=== PATIENT | female | born 2000 | race African-American/Black ===

== ENCOUNTER 2022-04-19 17:05 | Emergency (ER) | payer OTHER ==
[~2022-04-19] VITALS: Ht 167.6 cm; Wt 50.0 kg
[2022-04-19] MEDS ORDERED: ONDANSETRON 4MG 2ML VIAL IV ONE (18:45)
[2022-04-19] MEDS ORDERED: NS 1,500 ML in IV 1 EA IV ONE (18:45)
[2022-04-19] MEDS ORDERED: LIDOCAINE VISCOUS 2% SOLN 15ML UDC SS ONE (18:45)
[2022-04-19] MEDS ORDERED: KETOROLAC 30 MG/ML 1ML VIAL IV ONE (18:45)
[2022-04-19 19:29] LABS: BASO % 0.3 % (0.0-1.0); EOS % 0.5 % (0.0-3.0); HEMATOCRIT 25.7 % (36.0-47.0); LYMPH # 0.3 10^3/uL (1.5-5.0); LYMPH % 5.1 % (24.0-44.0); MEAN CORPUSCULAR HEMOGLOBIN 28.9 pg (27.0-33.0); MEAN CORPUSCULAR VOLUME 82.6 fl (80.0-96.0); MONO # 0.6 10^3/uL (0.0-0.8); MONO % 8.7 % (2.0-8.0); NEUTROPHILS # 5.5 10^3/uL (1.5-8.5); NEUTROPHILS % 85.1 % (36.0-66.0); PLATELET COUNT, AUTOMATED 217 10^3/uL (150-450); RED BLOOD COUNT 3.11 10^6/uL (4.00-5.40); WHITE BLOOD COUNT 6.4 10^3/uL (4.0-10.0)
[2022-04-19 19:44] LABS: LIPASE 23 U/L (12-53)
[2022-04-19 19:47] LABS: ALKALINE PHOSPHATASE 84 U/L (46-116); ALT/SGPT 17 U/L (7.0-40); AST/SGOT 15 U/L (<34); BILIRUBIN,DIRECT 0.5 MG/DL (<0.4); BILIRUBIN,TOTAL 1.3 MG/DL (0.3-1.2); BLOOD UREA NITROGEN 6 MG/DL (9-23); CALCIUM LEVEL 8.7 MG/DL (8.5-10.1); CARBON DIOXIDE LEVEL 22 MMOL/L (20-31); CHLORIDE LEVEL 104 MMOL/L (98-107); CREATININE FOR GFR 0.59 MG/DL (0.55-1.30); GLUCOSE, FASTING 93 MG/DL (60-100); POTASSIUM SERUM 3.1 MMOL/L (3.5-5.1); SODIUM LEVEL 140 MMOL/L (136-145)
[2022-04-19] MEDS ORDERED: ACETAMINOPHEN 500 MG TAB PO ONE (20:00)
[2022-04-19] MEDS ORDERED: ACETAMINOPHEN 160MG/5ML SUSP UDC DYE-FREE PO ONE (20:15)
[2022-04-19] MEDS ORDERED: ISOVUE-370 76% 100ML VIAL As Ordered ONE (21:01)
[2022-04-19] MEDS: GASTROGRAFIN SOLUTION 30ML PO SCH ×2 (21:23→21:53)
[2022-04-19] MEDS ORDERED: BENZ200C70 PO (23:48)
[2022-04-19] MEDS ORDERED: LIDO2SOL17 PO (23:48)
[2022-04-19] MEDS ORDERED: ONDA4TAB6 PO (23:48)
[2022-04-19 23:51] VITALS: BP 98/48
[2022-04-19] MEDS ORDERED: IBUPROFEN 100MG 5ML ORAL SUSP UDC PO ONE (23:55)
== END 2022-04-20 00:40 | disposition home or self-care (01) ==
LOC: M ED 18:23
DX: J02.9 Acute pharyngitis, unspecified (principal); R05.9 Cough, unspecified; M79.18 Myalgia, other site; R50.9 Fever, unspecified; D64.9 Anemia, unspecified; Z88.1 Allergy status to other antibiotic agents; Z79.899 Other long term (current) drug therapy
CPT/HCPCS: 71045; 74177; 80048; 80076; 81000; 81015; 83605; 83690; 84702; 85025; 87040; 87428; 96361; 96374; 99284; J2405

== ENCOUNTER 2023-03-01 23:00 | Inpatient (IN) | payer OTHER ==
[~2023-03-01] VITALS: Ht 170.2 cm; Wt 49.1 kg
[~2023-03-01 23:00] MED LIST: BENZ200C70 PO; LIDO15SO PO; ONDA4TAB6 PO
[2023-03-01 23:47] LABS: HEMATOCRIT 27.2 % (36.0-47.0); HEMOGLOBIN 10.2 g/dl (12.0-15.5); MEAN CORPUSCULAR HEMOGLOBIN 30.1 pg (27.0-33.0); MEAN CORPUSCULAR VOLUME 80.2 fl (80.0-96.0); PLATELET COUNT, AUTOMATED 208 10^3/uL (150-450); RED BLOOD COUNT 3.39 10^6/uL (4.00-5.40); WHITE BLOOD COUNT 8.6 10^3/uL (4.0-10.0)
[2023-03-02 00:02] LABS: MEAN CORPUSCULAR HGB CONC 37.5 g/dl (32.0-36.5)
[2023-03-02 00:11] LABS: AMPHETAMINES LEVEL URINE NEGATIVE (NEGATIVE); BARBITURATES URINE NEGATIVE (NEGATIVE); BENZODIAZEPINES URINE NEGATIVE (NEGATIVE); COCAINE METABOLITE URINE NEGATIVE (NEGATIVE)
[2023-03-02 00:12] LABS: METHADONE URINE NEGATIVE (NEGATIVE); OPIATES URINE NEGATIVE (NEGATIVE); PHENCYCLIDINE URINE NEGATIVE (NEGATIVE)
[2023-03-02 00:13] LABS: HCG, SERUM QUALITATIVE NEGATIVE (NEGATIVE)
[2023-03-02 00:14] LABS: ETHYL ALCOHOL (ETHANOL) 0.008 % (0.000-0.010)
[2023-03-02 00:15] LABS: ALBUMIN 4.1 G/DL (3.2-5.2); ALKALINE PHOSPHATASE 78 U/L (46-116); ALT/SGPT 14 U/L (7.0-40); AST/SGOT 18 U/L (<34); BILIRUBIN,DIRECT 0.3 MG/DL (<0.4); BILIRUBIN,TOTAL 0.8 MG/DL (0.3-1.2); BLOOD UREA NITROGEN 11 MG/DL (9-23); CALCIUM LEVEL 9.2 MG/DL (8.5-10.1); CARBON DIOXIDE LEVEL 26 MMOL/L (20-31); CHLORIDE LEVEL 107 MMOL/L (98-107); CREATININE FOR GFR 0.46 MG/DL (0.55-1.30); GLOMERULAR FILTRATION RATE > 60.0 (>60); GLUCOSE, FASTING 102 MG/DL (60-100); POTASSIUM SERUM 3.4 MMOL/L (3.5-5.1); SALICYLATE LEVEL < 3.0 MG/DL (<30); SODIUM LEVEL 140 MMOL/L (136-145); TOTAL PROTEIN 7.3 G/DL (5.7-8.2)
[2023-03-02 00:17] LABS: CANNABINOIDS URINE POSITIVE (NEGATIVE)
[2023-03-02 00:18] LABS: THYROID STIMULATING HORMONE 0.895 uIU/ML (0.55-4.78)
[2023-03-02] MEDS ORDERED: MOM 30ML SUSPENSION UDC PO PRN (16:50)
[2023-03-02] MEDS ORDERED: MAALOX 30 ML SUSP *UDC PO PRN (16:50)
[2023-03-02] MEDS ORDERED: ACETAMINOPHEN TAB 650MG DOSE (2X325MG) PO PRN (16:50)
[2023-03-02] MEDS ORDERED: MED REC IN PROGRESS XX SCH (17:00)
[2023-03-02] MEDS ORDERED: HOME MED LIST COMPLETE! XX SCH (17:45)
[2023-03-03 06:46] VITALS: BP 118/64; TEMP 98.7; O2SAT 100
[2023-03-03] MEDS ORDERED: ESCITALOPRAM OXALATE 10 MG TAB (LEXAPRO) PO SCH (12:00)
[2023-03-03] MEDS ORDERED: SERTRALINE HCL 25 MG TABLET PO ONE (12:20)
[2023-03-03 17:12] VITALS: BP 122/59; TEMP 98.9; O2SAT 100
[2023-03-03] MEDS: IBUPROFEN 400MG TAB PO PRN (17:39)
[2023-03-03] MEDS ORDERED: MIRTAZAPINE 7.5MG PER 1/2 TABLET PO SCH (21:00)
[2023-03-03] MEDS: traZODone 50 MG TAB PO PRN (23:04)
[2023-03-04 06:21] VITALS: BP 107/56; TEMP 99; O2SAT 99
[2023-03-04] MEDS ORDERED: SERTRALINE HCL 50 MG TAB PO SCH (09:00)
[2023-03-04] MEDS: ESCITALOPRAM OXALATE 10 MG TAB (LEXAPRO) PO SCH (09:38)
[2023-03-04] MEDS ORDERED: LIDOCAINE 5% (LIDODERM) PATCH TD PRN (13:25)
[2023-03-04 15:33] VITALS: BP 120/63; TEMP 97.8; O2SAT 99
[2023-03-05] MEDS: traZODone 50 MG TAB PO PRN (00:10)
[2023-03-05 06:47] VITALS: BP 118/72; TEMP 99.5; O2SAT 100
[2023-03-05] MEDS: ESCITALOPRAM OXALATE 10 MG TAB (LEXAPRO) PO SCH (09:49)
[2023-03-05 19:30] VITALS: BP 125/60; TEMP 99.7; O2SAT 100
[2023-03-06] MEDS: diphenhydrAMINE 25MG CAP PO PRN ×2 (02:36→21:14)
[2023-03-06 06:26] VITALS: BP 127/63; TEMP 98.8; O2SAT 100
[2023-03-06] MEDS: ESCITALOPRAM OXALATE 10 MG TAB (LEXAPRO) PO SCH (08:35)
[2023-03-06 18:32] VITALS: BP 128/62; TEMP 98.8; O2SAT 100
[2023-03-06] MEDS: traZODone 50 MG TAB PO PRN (22:36)
[2023-03-07 06:39] VITALS: BP 110/54; TEMP 99.3; O2SAT 100
[2023-03-07] MEDS: ESCITALOPRAM OXALATE 10 MG TAB (LEXAPRO) PO SCH (09:10)
[2023-03-07 16:21] VITALS: BP 111/60; TEMP 98.4; O2SAT 100
[2023-03-07] MEDS: traZODone 50 MG TAB PO PRN (22:51)
[2023-03-08 06:32] VITALS: BP 130/71; TEMP 98.3; O2SAT 99
[2023-03-08] MEDS: ESCITALOPRAM OXALATE 5MG TABLET (LEXAPRO) PO SCH (08:43)
[2023-03-08] MEDS ORDERED: LEXA5TAB13 PO (10:02)
[2023-03-08] MEDS ORDERED: LIDO5TD TD (10:02)
[2023-03-08 16:38] VITALS: BP 127/60; TEMP 98.9; O2SAT 100
[2023-03-08] MEDS: IBUPROFEN 400MG TAB PO PRN (17:07)
[2023-03-08] MEDS: traZODone 50 MG TAB PO PRN (22:55)
[2023-03-09 06:29] VITALS: BP 124/65; TEMP 98.6; O2SAT 99
[2023-03-09] MEDS: ESCITALOPRAM OXALATE 5MG TABLET (LEXAPRO) PO SCH (08:27)
[2023-03-09] MEDS ORDERED: TRAZ-252 PO (12:07)
== END 2023-03-09 13:07 | disposition home or self-care (01) | DRG 751 ==
LOC: M ED 23:00 → M PSY 03-02 17:37
PROVIDERS: ADMIT Student in an Organized Health Care Education/Training Program; ATTEND Student in an Organized Health Care Education/Training Program
DX: F33.1 Major depressive disorder, recurrent, moderate (principal); R45.851 Suicidal ideations; F43.10 Post-traumatic stress disorder, unspecified; F60.3 Borderline personality disorder; F10.10 Alcohol abuse, uncomplicated; F12.10 Cannabis abuse, uncomplicated; Z91.51 Personal history of suicidal behavior; Z62.810 Personal history of physical and sexual abuse in childhood; Z88.0 Allergy status to penicillin; Z88.8 Allergy status to other drugs, medicaments and biological substances; D57.3 Sickle-cell trait; J45.909 Unspecified asthma, uncomplicated

== ENCOUNTER 2023-03-11 17:30 | Inpatient (IN) | payer OTHER ==
[~2023-03-11] VITALS: Ht 167.6 cm; Wt 46.4 kg
[~2023-03-11 17:30] MED LIST changes: +LEXA5TAB13 PO; +LIDO5TD TD; +TRAZ-252 PO
[2023-03-11 18:08] LABS: HCG, SERUM QUALITATIVE NEGATIVE (NEGATIVE)
[2023-03-11 18:16] LABS: ETHYL ALCOHOL (ETHANOL) 0.004 % (0.000-0.010)
[2023-03-11 18:17] LABS: CPK CREATINE PHOSPHOKINASE 107 U/L (34-145)
[2023-03-11 18:18] LABS: ALBUMIN 4.4 G/DL (3.2-5.2); ALKALINE PHOSPHATASE 85 U/L (46-116); ALT/SGPT 20 U/L (7.0-40); AST/SGOT 24 U/L (<34); BILIRUBIN,DIRECT 0.5 MG/DL (<0.4); BILIRUBIN,TOTAL 1.1 MG/DL (0.3-1.2); BLOOD UREA NITROGEN 7 MG/DL (9-23); CALCIUM LEVEL 9.4 MG/DL (8.5-10.1); CARBON DIOXIDE LEVEL 26 MMOL/L (20-31); CHLORIDE LEVEL 108 MMOL/L (98-107); CREATININE FOR GFR 0.47 MG/DL (0.55-1.30); GLOMERULAR FILTRATION RATE > 60.0 (>60); GLUCOSE, FASTING 140 MG/DL (60-100); POTASSIUM SERUM 3.3 MMOL/L (3.5-5.1); SALICYLATE LEVEL < 3.0 MG/DL (<30); SODIUM LEVEL 142 MMOL/L (136-145); TOTAL PROTEIN 7.8 G/DL (5.7-8.2)
[2023-03-11 18:19] LABS: THYROID STIMULATING HORMONE 1.015 uIU/ML (0.55-4.78)
[2023-03-11 18:26] LABS: AMPHETAMINES LEVEL URINE NEGATIVE (NEGATIVE); BARBITURATES URINE NEGATIVE (NEGATIVE); BENZODIAZEPINES URINE NEGATIVE (NEGATIVE); COCAINE METABOLITE URINE NEGATIVE (NEGATIVE); METHADONE URINE NEGATIVE (NEGATIVE); OPIATES URINE NEGATIVE (NEGATIVE); PHENCYCLIDINE URINE NEGATIVE (NEGATIVE)
[2023-03-11 18:29] LABS: CANNABINOIDS URINE POSITIVE (NEGATIVE)
[2023-03-11] MEDS ORDERED: NS 500 ML IV ONE (18:40)
[2023-03-11 18:41] LABS: BASO # 0.1 10^3/uL (0.0-0.2); BASO % 1.2 % (0.0-1.0); EOS # 0.1 10^3/uL (0.0-0.5); EOS % 1.4 % (0.0-3.0); HEMOGLOBIN 10.1 g/dl (12.0-15.5); LYMPH # 2.9 10^3/uL (1.5-5.0); LYMPH % 32.3 % (24.0-44.0); MEAN CORPUSCULAR HEMOGLOBIN 30.3 pg (27.0-33.0); MEAN CORPUSCULAR HGB CONC 37.4 g/dl (32.0-36.5); MEAN CORPUSCULAR VOLUME 81.1 fl (80.0-96.0); MONO # 0.6 10^3/uL (0.0-0.8); MONO % 6.5 % (2.0-8.0); NEUTROPHILS # 5.3 10^3/uL (1.5-8.5); NEUTROPHILS % 58.3 % (36.0-66.0); PLATELET COUNT, AUTOMATED 207 10^3/uL (150-450); RED BLOOD COUNT 3.33 10^6/uL (4.00-5.40); WHITE BLOOD COUNT 9.1 10^3/uL (4.0-10.0)
[2023-03-11] MEDS ORDERED: POTASSIUM CHLORIDE 10MEQ SR TABLET PO ONE (19:20)
[2023-03-11] MEDS: NS 1,000 ML IV SCH (21:14)
[2023-03-11] MEDS ORDERED: LEXA5TAB13 PO (21:50)
[2023-03-11] MEDS ORDERED: LIDO1PAD TOP (21:50)
[2023-03-11] MEDS ORDERED: TRAZ-252 PO (21:50)
[2023-03-11] MEDS ORDERED: HOME MED LIST COMPLETE! XX SCH (21:55)
[2023-03-11] MEDS ORDERED: POTASSIUM CHLORIDE 10% LIQ 20MEQ/15ML UDC PO ONE (22:00)
[2023-03-11 22:53] LABS: RSV AMPLIFICATION NEGATIVE (NEGATIVE)
[2023-03-11 22:58] VITALS: BP 103/51; TEMP 98; O2SAT 99
[2023-03-12 04:00] VITALS: BP 103/58; TEMP 98.4; O2SAT 94
[2023-03-12] MEDS: NS 1,000 ML IV SCH (04:49)
[2023-03-12 06:24] LABS: HEMATOCRIT 23.1 % (36.0-47.0); HEMOGLOBIN 8.4 g/dl (12.0-15.5); MEAN CORPUSCULAR HEMOGLOBIN 29.6 pg (27.0-33.0); MEAN CORPUSCULAR HGB CONC 36.4 g/dl (32.0-36.5); MEAN CORPUSCULAR VOLUME 81.3 fl (80.0-96.0); PLATELET COUNT, AUTOMATED 153 10^3/uL (150-450); RED BLOOD COUNT 2.84 10^6/uL (4.00-5.40); WHITE BLOOD COUNT 8.7 10^3/uL (4.0-10.0)
[2023-03-12 07:12] LABS: ALBUMIN 3.4 G/DL (3.2-5.2); ALKALINE PHOSPHATASE 66 U/L (46-116); ALT/SGPT 14 U/L (7.0-40); AST/SGOT 17 U/L (<34); BILIRUBIN,TOTAL 0.9 MG/DL (0.3-1.2); BLOOD UREA NITROGEN < 5 MG/DL (9-23); CALCIUM LEVEL 8.1 MG/DL (8.5-10.1); CARBON DIOXIDE LEVEL 25 MMOL/L (20-31); CHLORIDE LEVEL 111 MMOL/L (98-107); CREATININE FOR GFR 0.45 MG/DL (0.55-1.30); GLOMERULAR FILTRATION RATE > 60.0 (>60); GLUCOSE, FASTING 94 MG/DL (60-100); POTASSIUM SERUM 4.1 MMOL/L (3.5-5.1); SODIUM LEVEL 143 MMOL/L (136-145); TOTAL PROTEIN 6.1 G/DL (5.7-8.2)
[2023-03-12 07:28] VITALS: BP 100/52; TEMP 98.7; O2SAT 100
[2023-03-12] MEDS: ENOXAPARIN 40MG/0.4ML SYRINGE (J1650 PER 10MG) SC SCH (08:49)
[2023-03-12 11:56] VITALS: BP 100/48; TEMP 99.2; O2SAT 100
[2023-03-12 16:41] VITALS: BP 107/55; TEMP 98.4; O2SAT 98
[2023-03-12 20:00] VITALS: BP 112/56; TEMP 97.9; O2SAT 96
[2023-03-12 23:34] VITALS: BP 104/63; TEMP 98.1; O2SAT 100
[2023-03-13] MEDS: LIDOCAINE 5% (LIDODERM) PATCH TD SCH ×2 (00:51→21:00)
[2023-03-13 05:15] VITALS: BP 101/59; TEMP 97.9; O2SAT 99
[2023-03-13 05:33] LABS: HEMATOCRIT 25.7 % (36.0-47.0); HEMOGLOBIN 9.3 g/dl (12.0-15.5); MEAN CORPUSCULAR HEMOGLOBIN 29.5 pg (27.0-33.0); MEAN CORPUSCULAR HGB CONC 36.2 g/dl (32.0-36.5); MEAN CORPUSCULAR VOLUME 81.6 fl (80.0-96.0); PLATELET COUNT, AUTOMATED 166 10^3/uL (150-450); RED BLOOD COUNT 3.15 10^6/uL (4.00-5.40); WHITE BLOOD COUNT 9.9 10^3/uL (4.0-10.0)
[2023-03-13] MEDS ORDERED: traZODone 50 MG TAB PO PRN (06:55)
[2023-03-13] MEDS: ESCITALOPRAM OXALATE 5MG TABLET (LEXAPRO) PO SCH (08:32)
[2023-03-13] MEDS: ENOXAPARIN 40MG/0.4ML SYRINGE (J1650 PER 10MG) SC SCH (08:32)
[2023-03-13] MEDS ORDERED: LIDOCAINE 5% (LIDODERM) PATCH TD SCH (09:00)
[2023-03-13 10:56] LABS: PERCENT SATURATION 19.2 % (13.2-45.0)
[2023-03-13 10:59] LABS: FERRITIN 24.5 NG/ML (7.3-270.7)
[2023-03-13 14:00] VITALS: BP 104/61; TEMP 97.9; O2SAT 100
[2023-03-13 21:20] VITALS: BP 101/59; TEMP 97.9; O2SAT 99
[2023-03-14 06:00] VITALS: BP 106/60; TEMP 97.7; O2SAT 94
[2023-03-14] MEDS: ESCITALOPRAM OXALATE 5MG TABLET (LEXAPRO) PO SCH (08:36)
[2023-03-14] MEDS: ENOXAPARIN 40MG/0.4ML SYRINGE (J1650 PER 10MG) SC SCH (08:36)
[2023-03-14] MEDS ORDERED: LIDOCAINE 5% (LIDODERM) PATCH TD SCH (13:30)
[2023-03-14 14:00] VITALS: BP 109/67; TEMP 98.1; O2SAT 99
[2023-03-14 18:06] VITALS: BP 110/67; TEMP 97.9; O2SAT 100
== END 2023-03-14 18:30 | disposition home or self-care (01) | DRG 812 ==
LOC: M ED 17:30 → M ED INP 21:45 → ENRESERV 22:20 → M PCU 22:52 → M MSPAV 03-12 23:40
PROVIDERS: ADMIT Family Medicine; ATTEND Student in an Organized Health Care Education/Training Program
DX: T43.212A Poisoning by selective serotonin and norepinephrine reuptake inhibitors, intentional self-harm, initial encounter (principal); F32.1 Major depressive disorder, single episode, moderate; D57.1 Sickle-cell disease without crisis; T14.91XA Suicide attempt, initial encounter; J45.909 Unspecified asthma, uncomplicated; F10.10 Alcohol abuse, uncomplicated; F12.90 Cannabis use, unspecified, uncomplicated; E87.6 Hypokalemia; F43.10 Post-traumatic stress disorder, unspecified; Z83.3 Family history of diabetes mellitus; Z81.8 Family history of other mental and behavioral disorders; Z79.899 Other long term (current) drug therapy; Z88.0 Allergy status to penicillin; Z88.8 Allergy status to other drugs, medicaments and biological substances; Z20.822 Contact with and (suspected) exposure to COVID-19

== ENCOUNTER 2023-03-14 11:55 | Inpatient (IN) | payer OTHER ==
[~2023-03-14 11:55] MED LIST changes: +LIDO1PAD TOP; +NICOTINE 21MG/24HR 1 EA TRANSDERMAL TD SCH
[2023-03-14] MEDS ORDERED: ACETAMINOPHEN TAB 650MG DOSE (2X325MG) PO PRN (12:30)
[2023-03-14] MEDS ORDERED: MOM 30ML SUSPENSION UDC PO PRN (12:30)
[2023-03-14] MEDS ORDERED: IBUPROFEN 400MG TAB PO PRN (12:30)
[2023-03-14] MEDS ORDERED: diphenhydrAMINE 25MG CAP PO PRN (12:30)
[2023-03-14] MEDS ORDERED: MAALOX 30 ML SUSP *UDC PO PRN (12:30)
[2023-03-14 18:24] VITALS: BP 110/67; TEMP 97.9; O2SAT 100
[2023-03-15 06:32] VITALS: BP 101/55; TEMP 98.1; O2SAT 97
[2023-03-15] MEDS ORDERED: HOME MED LIST COMPLETE! XX SCH (08:30)
[2023-03-15] MEDS: ESCITALOPRAM OXALATE 5MG TABLET (LEXAPRO) PO SCH (09:08)
[2023-03-15] MEDS ORDERED: ACETAMINOPHEN 500 MG TAB PO ONE (14:35)
[2023-03-15] MEDS: LIDOCAINE 5% (LIDODERM) PATCH TD SCH (16:32)
[2023-03-15 18:46] VITALS: BP 112/53; TEMP 98.5
[2023-03-15] MEDS: traZODone 50 MG TAB PO PRN (22:18)
[2023-03-16 06:26] VITALS: BP 92/54; TEMP 98; O2SAT 98
[2023-03-16] MEDS: LIDOCAINE 5% (LIDODERM) PATCH TD SCH (08:49)
[2023-03-16] MEDS: ESCITALOPRAM OXALATE 5MG TABLET (LEXAPRO) PO SCH (08:49)
[2023-03-16 17:25] VITALS: BP 115/54; TEMP 99.3; O2SAT 100
[2023-03-17] MEDS: traZODone 50 MG TAB PO PRN (00:52)
[2023-03-17 06:32] VITALS: BP 96/50; TEMP 97.9; O2SAT 99
[2023-03-17] MEDS: ESCITALOPRAM OXALATE 5MG TABLET (LEXAPRO) PO SCH (08:54)
[2023-03-17] MEDS: LIDOCAINE 5% (LIDODERM) PATCH TD SCH (08:55)
== END 2023-03-17 13:35 | disposition home or self-care (01) | DRG 751 ==
LOC: M PSY 18:27
PROVIDERS: ADMIT Student in an Organized Health Care Education/Training Program; ATTEND Student in an Organized Health Care Education/Training Program
DX: F33.2 Major depressive disorder, recurrent severe without psychotic features (principal); F43.10 Post-traumatic stress disorder, unspecified; F60.3 Borderline personality disorder; F10.10 Alcohol abuse, uncomplicated; F12.10 Cannabis abuse, uncomplicated; D57.3 Sickle-cell trait; M54.9 Dorsalgia, unspecified; G89.29 Other chronic pain; J45.909 Unspecified asthma, uncomplicated; Z91.51 Personal history of suicidal behavior; Z88.3 Allergy status to other anti-infective agents; Z81.8 Family history of other mental and behavioral disorders; Z62.810 Personal history of physical and sexual abuse in childhood; Z79.899 Other long term (current) drug therapy; Z88.0 Allergy status to penicillin; Z88.8 Allergy status to other drugs, medicaments and biological substances

== ENCOUNTER → 2023-05-19 | Outpatient (CLI) | payer OTHER ==
[~2023-05-19] MED LIST changes: -NICOTINE 21MG/24HR 1 EA TRANSDERMAL TD SCH
[2023-05-19 19:36] LABS: CHOLESTEROL RISK RATIO 2.72 (<5); HDL CHOLESTEROL 38.6 MG/DL (>40); LDL CHOLESTEROL 47.2 MG/DL (<100); NON-HDL-C 66.4 MG/DL
== END ==
LOC: M PLALAB 13:53
PROVIDERS: ATTEND Psychiatry & Neurology Psychiatry
DX: F33.2 Major depressive disorder, recurrent severe without psychotic features (principal); F43.10 Post-traumatic stress disorder, unspecified; F10.10 Alcohol abuse, uncomplicated; F60.3 Borderline personality disorder